=== PATIENT | female | born 1955 | race Caucasian/White ===

== ENCOUNTER 2024-08-20 | Inpatient (IN) ==
[2024-08-20] MEDS ORDERED: IOPAMIDOL 100 ML BOTTLE IV ONE (00:01)
[2024-08-20 00:28] LABS: Basophils # (Auto) 0.04 K/mcL (0.00-0.30); Basophils % (Auto) 0.2 % (0.0-2.0); Eosinophils # (Auto) 0.01 K/mcL (0.00-0.70); Eosinophils % (Auto) 0.1 % (0.0-7.0); Hemoglobin 13.1 g/dL (11.2-15.7); Lymphocytes % (Auto) 4.1 % (15.5-49.0); Mean Cell Volume 93.8 fL (80.0-100.0); Mean Platelet Volume 11.1 fL (8.8-12.5); Monocytes # (Auto) 0.66 K/mcL (0.10-0.90); Monocytes % (Auto) 3.8 % (1.0-12.0); Neutrophils % (Auto) 90.9 % (38.0-78.0); Platelet Count 249 K/mcL (140-440); RBC 4.37 M/mcL (3.59-5.38); Red Cell Distribution Width 12.4 % (11.5-14.5); WBC 17.3 K/mcL (4.5-11.0)
[2024-08-20 00:49] LABS: ALT/SGPT 21 U/L (<40); AST/SGOT 24 U/L (<32); Albumin 4.2 gm/dL (3.2-5.2); Albumin/Globulin Ratio 1.2 (1.0-2.3); Alkaline Phosphatase 112 U/L (39-117); Bilirubin,Total 0.3 mg/dL (0.1-1.0); Blood Urea Nitrogen 18 mg/dL (8-23); Calcium 9.5 mg/dL (8.6-10.4); Carbon Dioxide 22 mmol/L (22-30); Chloride 99 mmol/L (96-108); Globulin 3.4 gm/dL (2.2-3.7); Glomerular Filtration Rate 75; Glucose 124 mg/dL (70-105); Potassium 3.6 mmol/L (3.3-5.1); Sodium 137 mmol/L (133-145); Thyroid Stimulating Hormone 1.72 uIU/mL (0.27-5.01)
[2024-08-20 01:17] LABS: Free T4 (Free Thyroxine) 1.25 ng/dL (0.93-1.70)
[2024-08-20] MEDS: HALOPERIDOL LACTATE 5 MG/ML VIAL IV ONE (02:00)
[2024-08-20] MEDS: 0.9 % SODIUM CHLORIDE 1,000 ML IV ONE ×3 (02:09→03:04)
[2024-08-20] MEDS ORDERED: HALOPERIDOL LACTATE 5 MG/ML VIAL IV PRN (02:46)
[2024-08-20] MEDS ORDERED: ONDANSETRON 4 MG/2 ML VIAL IV PRN (02:46)
[2024-08-20] MEDS ORDERED: ALBUTEROL SULFATE 2.5 MG/3 ML NEBULIZER NEB PRN (02:46)
[2024-08-20] MEDS: AZITHROMYCIN 500 MG in 0.9 % SODIUM CHLORIDE 250 ML IV ONE (03:02)
[2024-08-20] MEDS: cefTRIAXone 1 GM VIAL IV ONE (03:02)
[2024-08-20 03:30] LABS: Appearance,Urine CLEAR (Clear); Bilirubin,Urine Negative (Negative); Color,Urine YELLOW; Glucose,Urine (UA) 50 mg/dL (Negative); Ketones,Urine Negative (Negative); Leukocyte Esterase,Urine Negative /uL (Negative); Mucus,Urine FEW /hpf; Nitrate,Urine Negative (Negative); Protein,Urine Negative (Negative); Specific Gravity,Urine 1.035 (1.000-1.035); Urine Blood Negative (Negative); Urine RBC 1 /hpf (0-3); Urine Squamous Epithelial Cell 4 /hpf (0-4); Urine WBC 4 /hpf (0-4); Urobilinogen,Urine Negative
[2024-08-20 03:42] LABS: Amphetamine Screen,Urine None detected; Barbiturate Screen,Urine None detected; Benzodiazepines Screen,Urine None detected; Cannabinoid Screen,Urine None detected; Cocaine Screen,Urine None detected; Fentanyl, Urine Screen None Detected; Opiate Screen,Urine None detected; Oxycodone, Urine Screen None detected; Phencyclidine Screen,Urine None detected
[2024-08-20] MEDS: 0.9 % SODIUM CHLORIDE 10 ML SYRINGE IV SCH (05:53)
[2024-08-20] MEDS: IPRATROPIUM/ALBUTEROL 3 ML AMPUL.NEB NEB SCH (07:53)
[2024-08-20] MEDS ORDERED: METOCLOPRAMIDE 10 MG/2 ML VIAL IV PRN (08:14)
[2024-08-20] MEDS ORDERED: DEXTROSE 50% 50 ML VIAL IV PRN (08:14)
[2024-08-20] MEDS ORDERED: POTASSIUM CHLORIDE 20 MEQ TABLET PO PRN ×2 (08:14)
[2024-08-20] MEDS ORDERED: IPRATROPIUM/ALBUTEROL 3 ML AMPUL.NEB NEB PRN (08:14)
[2024-08-20] MEDS ORDERED: POLYETHYLENE GLYCOL 3350 17 GM PACKET PO PRN (08:14)
[2024-08-20] MEDS ORDERED: POTASSIUM CHLORIDE 40 MEQ in DEXTROSE 5% IN WATER 500 ML IV PRN (08:14)
[2024-08-20] MEDS ORDERED: SENNOSIDES 1 TABLET PO PRN (08:14)
[2024-08-20] MEDS ORDERED: DEXTROSE 31 GM ORAL.SUSP PO PRN (08:14)
[2024-08-20] MEDS ORDERED: MAGNESIUM SULFATE 2 GM/50 ML BAG IV PRN (08:14)
[2024-08-20] MEDS: INSULIN GLARGINE, HUMAN 1 UNIT/0.01 ML SQ SCH (11:00)
[2024-08-20] MEDS: ENOXAPARIN 40 MG/0.4 ML SYRINGE SQ SCH (11:01)
[2024-08-20] MEDS: DOCUSATE SODIUM 100 MG CAPSULE PO SCH (11:01)
[2024-08-20] MEDS: INSULIN LISPRO 1 UNIT/0.01 ML UNIT SQ SCH (11:03)
[2024-08-20] MEDS: ACETAMINOPHEN 325 MG TABLET PO PRN (14:39)
[2024-08-20] MEDS: OLANZapine 10 MG VIAL IM SCH (16:01)
[2024-08-20] MEDS: cefTRIAXone 1 GM VIAL IV SCH (18:00)
[2024-08-20] MEDS: AZITHROMYCIN 500 MG in 0.9 % SODIUM CHLORIDE 250 ML IV SCH (19:52)
[2024-08-21] MEDS: CEFEPIME 2 GM VIAL IV SCH (00:29)
[2024-08-21] MEDS: VANCOMYCIN 1,500 MG in 0.9 % SODIUM CHLORIDE 500 ML IV ONE (00:30)
[2024-08-21] MEDS: VANCOMYCIN PER PHARMACY IV ONE (00:30)
[2024-08-21 06:40] LABS: Basophils # (Auto) 0.04 K/mcL (0.00-0.30); Basophils % (Auto) 0.5 % (0.0-2.0); Eosinophils # (Auto) 0 K/mcL (0.00-0.70); Eosinophils % (Auto) 0 % (0.0-7.0); Hematocrit 38.3 % (34.1-44.9); Hemoglobin 12.1 g/dL (11.2-15.7); Lymphocytes % (Auto) 10.1 % (15.5-49.0); Mean Cell Volume 95.5 fL (80.0-100.0); Mean Corpuscular HGB Conc 31.6 g/dL (31.0-36.0); Mean Platelet Volume 11.5 fL (8.8-12.5); Monocytes # (Auto) 0.56 K/mcL (0.10-0.90); Monocytes % (Auto) 7.1 % (1.0-12.0); Neutrophils % (Auto) 81.9 % (38.0-78.0); Platelet Count 202 K/mcL (140-440); RBC 4.01 M/mcL (3.59-5.38); Red Cell Distribution Width 12.7 % (11.5-14.5); WBC 7.9 K/mcL (4.5-11.0)
[2024-08-21 06:51] LABS: ALT/SGPT 23 U/L (<40); AST/SGOT 31 U/L (<32); Albumin 3.7 gm/dL (3.2-5.2); Albumin/Globulin Ratio 1.2 (1.0-2.3); Alkaline Phosphatase 88 U/L (39-117); Bilirubin,Direct < 0.2 mg/dL (0-0.3); Bilirubin,Total 0.2 mg/dL (0.1-1.0); Blood Urea Nitrogen 9 mg/dL (8-23); C-Reactive Protein 9.81 mg/dL (0.03-0.80); Calcium 8.8 mg/dL (8.6-10.4); Carbon Dioxide 23 mmol/L (22-30); Chloride 100 mmol/L (96-108); Globulin 3.1 gm/dL (2.2-3.7); Glomerular Filtration Rate 93; Glucose 98 mg/dL (70-105); Lactate Dehydrogenase 180 U/L (135-225); Phosphorous 2.3 mg/dL (2.5-4.5); Potassium 3.7 mmol/L (3.3-5.1); Sodium 135 mmol/L (133-145); Triglycerides 96 mg/dL (<150); Uric Acid 3.6 mg/dL (2.5-8.0)
[2024-08-21] MEDS ORDERED: VANCOMYCIN PER PHARMACY IV SCH (09:00)
[2024-08-21] MEDS ORDERED: GADOBENATE DIMEGLUMINE 15 ML/VIAL IV ONE (14:59)
[2024-08-21] MEDS: VANCOMYCIN 750 MG in 0.9 % SODIUM CHLORIDE 250 ML IV SCH (18:44)
[2024-08-22 05:56] LABS: Basophils # (Auto) 0.03 K/mcL (0.00-0.30); Basophils % (Auto) 0.5 % (0.0-2.0); Eosinophils # (Auto) 0.03 K/mcL (0.00-0.70); Eosinophils % (Auto) 0.5 % (0.0-7.0); Hematocrit 37.2 % (34.1-44.9); Hemoglobin 11.9 g/dL (11.2-15.7); Lymphocytes % (Auto) 17.8 % (15.5-49.0); Mean Cell Volume 93.7 fL (80.0-100.0); Monocytes % (Auto) 12.9 % (1.0-12.0); Neutrophils % (Auto) 67.8 % (38.0-78.0); Platelet Count 201 K/mcL (140-440); RBC 3.97 M/mcL (3.59-5.38); Red Cell Distribution Width 12.9 % (11.5-14.5); WBC 6.2 K/mcL (4.5-11.0)
[2024-08-22 06:31] LABS: ALT/SGPT 21 U/L (<40); AST/SGOT 24 U/L (<32); Albumin 3.4 gm/dL (3.2-5.2); Albumin/Globulin Ratio 1.1 (1.0-2.3); Alkaline Phosphatase 82 U/L (39-117); Bilirubin,Direct < 0.2 mg/dL (0-0.3); Bilirubin,Total < 0.2 mg/dL (0.1-1.0); Blood Urea Nitrogen 12 mg/dL (8-23); Calcium 8.7 mg/dL (8.6-10.4); Carbon Dioxide 23 mmol/L (22-30); Chloride 105 mmol/L (96-108); Glomerular Filtration Rate 88; Glucose 107 mg/dL (70-105); Lactate Dehydrogenase 161 U/L (135-225); Phosphorous 2.9 mg/dL (2.5-4.5); Potassium 3.7 mmol/L (3.3-5.1); Sodium 139 mmol/L (133-145); Triglycerides 125 mg/dL (<150); Uric Acid 4.1 mg/dL (2.5-8.0)
[2024-08-22] MEDS: VANCOMYCIN 1,250 MG in 0.9 % SODIUM CHLORIDE 500 ML IV SCH (17:01)
[2024-08-22] MEDS: MELATONIN 3 MG TABLET PO SCH (21:12)
[2024-08-23 06:09] LABS: ALT/SGPT 26 U/L (<40); AST/SGOT 28 U/L (<32); Albumin 3.6 gm/dL (3.2-5.2); Albumin/Globulin Ratio 1.2 (1.0-2.3); Alkaline Phosphatase 85 U/L (39-117); Bilirubin,Direct < 0.2 mg/dL (0-0.3); Bilirubin,Total 0.2 mg/dL (0.1-1.0); Blood Urea Nitrogen 11 mg/dL (8-23); Calcium 9.1 mg/dL (8.6-10.4); Carbon Dioxide 24 mmol/L (22-30); Chloride 105 mmol/L (96-108); Globulin 3.1 gm/dL (2.2-3.7); Glomerular Filtration Rate 93; Glucose 75 mg/dL (70-105); Lactate Dehydrogenase 180 U/L (135-225); Potassium 3.5 mmol/L (3.3-5.1); Sodium 142 mmol/L (133-145); Triglycerides 134 mg/dL (<150)
[2024-08-23 06:12] LABS: Basophils # (Auto) 0.04 K/mcL (0.00-0.30); Basophils % (Auto) 0.8 % (0.0-2.0); Eosinophils # (Auto) 0.08 K/mcL (0.00-0.70); Eosinophils % (Auto) 1.6 % (0.0-7.0); Hematocrit 37.8 % (34.1-44.9); Hemoglobin 11.9 g/dL (11.2-15.7); Lymphocytes # (Auto) 1.53 K/mcL (1.50-4.80); Lymphocytes % (Auto) 29.9 % (15.5-49.0); Mean Cell Volume 93.1 fL (80.0-100.0); Mean Corpuscular HGB Conc 31.5 g/dL (31.0-36.0); Mean Platelet Volume 11.1 fL (8.8-12.5); Monocytes # (Auto) 0.88 K/mcL (0.10-0.90); Monocytes % (Auto) 17.2 % (1.0-12.0); Neutrophils % (Auto) 50.1 % (38.0-78.0); Platelet Count 207 K/mcL (140-440); RBC 4.06 M/mcL (3.59-5.38); Red Cell Distribution Width 12.5 % (11.5-14.5); WBC 5.1 K/mcL (4.5-11.0)
[2024-08-23] MEDS ORDERED: 0.9 % SODIUM CHLORIDE 10 ML SYRINGE IV PRN (15:10)
[2024-08-23] MEDS ORDERED: SODIUM CHLORIDE IRRIG SOLUTION 500 ML BOTTLE IRR ONE (16:17)
[2024-08-23] MEDS ORDERED: LIDOCAINE 1% 10 ML VIAL SQ ONE (16:17)
[2024-08-23] MEDS: 0.9 % SODIUM CHLORIDE 10 ML SYRINGE IV SCH (21:40)
[2024-08-24 07:24] LABS: Basophils # (Auto) 0.05 K/mcL (0.00-0.30); Basophils % (Auto) 0.8 % (0.0-2.0); Eosinophils # (Auto) 0.16 K/mcL (0.00-0.70); Eosinophils % (Auto) 2.5 % (0.0-7.0); Hemoglobin 11.7 g/dL (11.2-15.7); Lymphocytes % (Auto) 28.2 % (15.5-49.0); Mean Cell Volume 92.5 fL (80.0-100.0); Mean Corpuscular HGB Conc 31.6 g/dL (31.0-36.0); Mean Platelet Volume 10.9 fL (8.8-12.5); Monocytes # (Auto) 0.76 K/mcL (0.10-0.90); Monocytes % (Auto) 11.9 % (1.0-12.0); Neutrophils % (Auto) 56.1 % (38.0-78.0); Platelet Count 243 K/mcL (140-440); Red Cell Distribution Width 12.6 % (11.5-14.5); WBC 6.4 K/mcL (4.5-11.0)
[2024-08-24 07:55] LABS: ALT/SGPT 26 U/L (<40); AST/SGOT 28 U/L (<32); Albumin 3.7 gm/dL (3.2-5.2); Albumin/Globulin Ratio 1.1 (1.0-2.3); Alkaline Phosphatase 89 U/L (39-117); Bilirubin,Direct < 0.2 mg/dL (0-0.3); Bilirubin,Total 0.2 mg/dL (0.1-1.0); Blood Urea Nitrogen 11 mg/dL (8-23); Calcium 9.2 mg/dL (8.6-10.4); Carbon Dioxide 23 mmol/L (22-30); Chloride 104 mmol/L (96-108); Globulin 3.3 gm/dL (2.2-3.7); Glomerular Filtration Rate 99; Glucose 82 mg/dL (70-105); Lactate Dehydrogenase 196 U/L (135-225); Phosphorous 3.2 mg/dL (2.5-4.5); Potassium 3.9 mmol/L (3.3-5.1); Sodium 141 mmol/L (133-145); Triglycerides 138 mg/dL (<150); Uric Acid 3.8 mg/dL (2.5-8.0)
[2024-08-25] MEDS: cefTRIAXone 2 GM in DEXTROSE 5% IN WATER 50 ML IV ONE (15:13)
[2024-08-25] MEDS: IBUPROFEN 800 MG TABLET PO PRN (16:36)
[2024-08-26 06:32] LABS: Basophils # (Auto) 0.05 K/mcL (0.00-0.30); Basophils % (Auto) 0.7 % (0.0-2.0); Eosinophils # (Auto) 0.17 K/mcL (0.00-0.70); Eosinophils % (Auto) 2.5 % (0.0-7.0); Hematocrit 37.8 % (34.1-44.9); Hemoglobin 11.9 g/dL (11.2-15.7); Lymphocytes # (Auto) 1.75 K/mcL (1.50-4.80); Lymphocytes % (Auto) 26.1 % (15.5-49.0); Mean Cell Volume 93.3 fL (80.0-100.0); Mean Corpuscular HGB Conc 31.5 g/dL (31.0-36.0); Mean Platelet Volume 10.6 fL (8.8-12.5); Monocytes % (Auto) 10.4 % (1.0-12.0); Neutrophils % (Auto) 58.7 % (38.0-78.0); Platelet Count 225 K/mcL (140-440); RBC 4.05 M/mcL (3.59-5.38); Red Cell Distribution Width 12.4 % (11.5-14.5); WBC 6.7 K/mcL (4.5-11.0)
[2024-08-26 06:52] LABS: Creatine Kinase 82 U/L (24-170)
[2024-08-26 06:59] LABS: ALT/SGPT 39 U/L (<40); AST/SGOT 42 U/L (<32); Albumin 3.7 gm/dL (3.2-5.2); Albumin/Globulin Ratio 1.1 (1.0-2.3); Alkaline Phosphatase 91 U/L (39-117); Bilirubin,Total < 0.2 mg/dL (0.1-1.0); Blood Urea Nitrogen 14 mg/dL (8-23); Calcium 9.5 mg/dL (8.6-10.4); Carbon Dioxide 23 mmol/L (22-30); Chloride 107 mmol/L (96-108); Globulin 3.3 gm/dL (2.2-3.7); Glomerular Filtration Rate 106; Glucose 90 mg/dL (70-105); Potassium 4.3 mmol/L (3.3-5.1); Sodium 142 mmol/L (133-145)
[2024-08-26] MEDS: LEVOFLOXACIN 250 MG TABLET PO SCH (09:44)
[2024-08-26] MEDS: DAPTOmycin 500 MG VIAL IV SCH (09:45)
== END 2024-08-26 10:20 | disposition home or self-care (01) | DRG 871 ==
LOC: ED → ICU 03:36 → MEDSUR 08-23 16:14
PROVIDERS: ADMIT Internal Medicine; ATTEND Student in an Organized Health Care Education/Training Program